=== PATIENT | male | born 1950 | race Caucasian/White ===

== ENCOUNTER 2016-12-16 11:11 | Emergency (ER) | payer MEDICARE, MEDICAID ==
[2016-12-16 11:30] VITALS: TEMP 98.5; BMI 29.4
[2016-12-16 11:49] LABS: AUTOMATED BASOPHIL 0.7 % (0-2); AUTOMATED EOSINOPHIL 1.7 % (0-5); AUTOMATED LYMPH 18.7 % (17-44); AUTOMATED MONOCYTE 12.2 % (3-10); AUTOMATED NEUTROPHIL 66.7 % (45-76); MPV 8.9 fL (7.4-10.4)
[2016-12-16 11:57] LABS: BLOOD UREA NITROGEN 20 MG/DL (9-20); CALC CORRECTED 10.6 MG/DL (8.4-10.2); CALCIUM 10.4 MG/DL (8.4-10.2); CALCULATED OSMOLALITY 271 MOs/Kg (270-290); CHLORIDE 108 mEq/L (98-107); GLUCOSE 86 MG/DL (70-99); SODIUM LEVEL 140 mEq/L (137-146); TOTAL PROTEIN 6.5 G/DL (6.3-8.2)
[2016-12-16 12:00] LABS: LEUKOCYTES/URINE NEG (NEGATIVE); NITRITE/URINE NEG (NEGATIVE); RBC/URINE TNTC (0-2); URINE OCCULT BLOOD 3+ (NEG/TRACE)
[2016-12-16] MEDS ORDERED: ONDANSETRON HCL 4 MG/2 ML VIAL IV ONE (13:28)
[2016-12-16] MEDS ORDERED: NS 1,000 ML IV ONE (13:28)
[2016-12-16] MEDS ORDERED: HYDROmorphone 1 MG INJECTION IV ONE (13:28)
--- NOTE | 2016-12-16 13:30 | EDPRACDOC ---
- General Information Mode Of Arrival: Car - History of Present Illness Onset: YESTERDAY Pain Location: Reports: Diffuse Pain Context: Reports: Spontaneous Pain Severity: Mild Pain Quality: Reports: Aching Pain Radiation: Reports: No Radiation Adult Abdominal History: Reports: Urolithiasis Modifying Factors: improves with: Nothing Oral Intake: Normal Urinary Output: Normal <Guillermo Barber - Last Filed: 12/16/16 13:50> <Keshawn Vizcarra - Last Filed: 12/16/16 15:21> - General Information Chief Complaint: Abdominal Pain Stated Complaint: PRIVATE AREA PAIN Time Seen by Provider: 12/16/16 12:59 Home Medications: Home Medications Atorvastatin Calcium [Lipitor] 80 mg PO HS 12/22/13 Escitalopram Oxalate [Lexapro] 20 mg PO DAILY 12/22/13 Nitroglycerin [Nitrostat] 0.4 mg SL Q5MX3 PRN 12/22/13 Bennett-3 Acid Ethyl Esters [Lovaza] 2 gm PO BID 12/22/13 Omeprazole [Prilosec] 20 mg PO DAILY 12/22/13 Gabapentin [Neurontin] 300 mg PO TID 05/18/16 Lisinopril [Prinivil] 10 mg PO DAILY 05/18/16 Montelukast Sodium [Singulair] 10 mg PO QHS 05/18/16 Amlodipine [Norvasc] 5 mg PO DAILY #30 tab 09/24/16 Apixaban [Eliquis] 5 mg PO BID #60 tablet 09/24/16 Aspirin [Nish Aspirin] 81 mg PO DAILY #30 tablet 09/24/16 Albuterol Sulfate [Proair Hfa] 2 puff INH Q6H PRN 11/09/16 Ferrous Sulfate [Iron] 325 mg PO DAILY 11/09/16 Mometasone/Formoterol [Dulera 200 Mcg/5 Mcg Inhaler] 2 puff INH BID PRN Tamsulosin HCl 0.4 mg PO BID 11/09/16 Fenofibrate [Tricor] 145 mg PO DAILY 12/16/16 Finasteride [Proscar] 5 mg PO DAILY 12/16/16 Fluticasone Propionate [Flonase Nasal [place]] 1 spray KIKA DAILY 12/16/16 Oxycodone HCl/Acetaminophen [Percocet 5-325 mg Tablet] 1 each PO Q4 #20 tablet 12/16/16 Allergies/Adverse Reactions: Allergies Allergy/AdvReac Type Severity Reaction Status Date / Time hydrocodone AdvReac Intermediate See Verified 11/09/16 11:32 Comments - History of Present Illness HPI: RECENT URETERAL STONE; ATTEMPTED CYSTOSCOPY BUT UNABLE. PAIN TO RIGHT TESTICLE ALSO (Guillermo Barber) ED Past Medical History - History Reviewed Yes Nurses notes reviewed and agree except as marked - Patient Medical History Cardiac History: Reports: Hypertension, Heart Attack, Cardiac Catheterization ( With stents x2), Hypercholesterolemia Respiratory History: Reports: Asthma, COPD, Pulmonary Embolism GI/ History: Reports: Kidney Stones Musculoskeletal History: Reports: Arthritis Psychological History: Reports: Depression, Anxiety. Denies: Substance Use Disorder Surgical History: Reports: Cardiac Catheterization (With stents x2), Other ( Back surgery in the lumbar area) - Family Medical History Reports: Hypertension (mom), Cancer (dad and brother), Cardiac Disorders (mom) - Social Medical History Smoking Status: Former smoker Social History: Denies: Substance Use Disorder <Guillermo Barber - Last Filed: 12/16/16 13:50> EDM Review of Systems - Review of Systems ROS Negative Except as Marked: Yes All systems reviewed and were negative except as marked <Guillermo Barber - Last Filed: 12/16/16 13:50> - Physical Exam Constitutional: Alert (Awake), No apparent distress Oriented to: Time, Person, Place - HEENT Head: Normal ( normocephalic) Eye Exam: Normal (PERRL, EOMI, Sclera white) Oropharynx: Normal (Pharynx:Moist without exudate,Gums-no swelling) ENT EAC: Normal TMJ: Normal Nose: No Symptoms Reported (septum midline) Neck: Normal (FROM, trachea at midline) - Respiratory/Cardiovascular Respiratory: Normal - CTA (BBS clear to auscultation without adventitious sounds ) Cardiovascular: Normal (RRR without murmur, gallop or rub) - GI Auscultation: Normal (NABS) Palpation: Normal (Soft,No rebound or guarding, non distended) Tenderness: Non tender Singh's Sign: Negative - Scrotum: Right: Tender - Musculoskeletal Back: Normal (Non-Tender) Extremities: Normal (Normal tone, Pulses 2+ No cyanosis or edema, FROM) - Integumentary Skin: Normal, Warm, Dry Lymphatics: Normal (no adenopathy) - Neurologic Memory Impaired: Normal Motor Function: Normal (Normal tone, Pulses 2+ No cyanosis or edema, FROM) Cranial Nerve: Normal (CN II-X11 intact sensation, strength 5/5) Cerebellar: Normal Mood Description: Normal Perception: Normal <Guillermo Barber - Last Filed: 12/16/16 13:50> - Results 12/16/16 11:36 12/16/16 11:36 <Guillermo Barber - Last Filed: 12/16/16 13:50> - Results 12/16/16 11:36 12/16/16 11:36 <Keshawn Vizcarra - Last Filed: 12/16/16 15:21> - Results WBC 4.5 xk/uL (3.8-10.8) 12/16/16 11:36 RBC 4.47 xM/uL (4.70-6.10) L 12/16/16 11:36 Hgb 14.5 g/dL (14.0-18.0) 12/16/16 11:36 Hct 43.5 % (42-52) 12/16/16 11:36 MCV 97 fL (80-94) H 12/16/16 11:36 MCH 32.4 pg (27-32) H 12/16/16 11:36 MCHC 33.3 g/dl (33-36) 12/16/16 11:36 RDW 15.0 % (11.5-14.5) H 12/16/16 11:36 Plt Count 186 xk/uL (130-400) 12/16/16 11:36 MPV 8.9 fL (7.4-10.4) 12/16/16 11:36 Neut % (Auto) 66.7 % (45-76) 12/16/16 11:36 Lymph % (Auto) 18.7 % (17-44) 12/16/16 11:36 [place] % (Auto) 12.2 % (3-10) H 12/16/16 11:36 Eos % (Auto) 1.7 % (0-5) 12/16/16 11:36 Baso % (Auto) 0.7 % (0-2) 12/16/16 11:36 Absolute Neuts (auto) 2.97 xk/uL (1.7-8.2) 12/16/16 11:36 Absolute Lymphs (auto) 0.81 xk/uL (0.65-4.75) 12/16/16 11:36 Sodium 140 mEq/L (137-146) 12/16/16 11:36 Potassium 4.0 mEq/L (3.5-5.1) 12/16/16 11:36 Chloride 108 mEq/L (98-107) H 12/16/16 11:36 Carbon Dioxide 25 mMOL/L (22-33) 12/16/16 11:36 Anion Gap 11 mEq/L (8-16) 12/16/16 11:36 BUN 20 MG/DL (9-20) 12/16/16 11:36 Creatinine 1.10 MG/DL (0.66-1.25) 12/16/16 11:36 Estimated GFR (MDRD) > 60 mL/min (>=60) 12/16/16 11:36 Glucose 86 MG/DL (70-99) 12/16/16 11:36 Calculated Osmolality 271 MOs/Kg (270-290) 12/16/16 11:36 Calcium 10.4 MG/DL (8.4-10.2) H 12/16/16 11:36 Corrected Calcium 10.6 MG/DL (8.4-10.2) H 12/16/16 11:36 Total Bilirubin 0.8 MG/DL (0.2-1.3) 12/16/16 11:36 AST 30 IU/L (17-59) 12/16/16 11:36 ALT 54 IU/L (21-72) 12/16/16 11:36 Alkaline Phosphatase 55 IU/L (50-160) 12/16/16 11:36 Total Protein 6.5 G/DL (6.3-8.2) 12/16/16 11:36 Albumin 3.8 G/DL (3.5-5.0) 12/16/16 11:36 Urine Color Yellow 12/16/16 11:33 Urine Clarity Clear 12/16/16 11:33 Urine pH 5.0 (5.0-8.0) 12/16/16 11:33 Ur Specific Mcd[place]ough 1.025 (1.003-1.035) 12/16/16 11:33 Urine Protein Neg (NEG/TRACE) 12/16/16 11:33 Urine Glucose (UA) Neg (NEGATIVE) 12/16/16 11:33 Urine Ketones Neg (NEGATIVE) 12/16/16 11:33 Urine Occult Blood 3+ (NEG/TRACE) H 12/16/16 11:33 Urine Nitrite Neg (NEGATIVE) 12/16/16 11:33 Urine Bilirubin Neg (NEGATIVE) 12/16/16 11:33 Urine Urobilinogen <2.0 MG/DL (0-1) 12/16/16 11:33 Ur Leukocyte Esterase Neg (NEGATIVE) 12/16/16 11:33 Urine RBC Tntc (0-2) H 12/16/16 11:33 Urine WBC 2-5 (0-2) H 12/16/16 11:33 Urine Bacteria Few (NEG/FEW) 12/16/16 11:33 Urine Mucus Mod (NEG/OCC) H 12/16/16 11:33 Lab Results 12/16/16 12/16/16 12/16/16 11:36 11:36 11:33 WBC 4.5 RBC 4.47 L Hgb 14.5 Hct 43.5 MCV 97 H MCH 32.4 H MCHC 33.3 RDW 15.0 H Plt Count 186 MPV 8.9 Neut % (Auto) 66.7 Lymph % (Auto) 18.7 [place] % (Auto) 12.2 H Eos % (Auto) 1.7 Baso % (Auto) 0.7 Absolute Neuts (auto) 2.97 Absolute Lymphs (auto) 0.81 Sodium 140 Potassium 4.0 Chloride 108 H Carbon Dioxide 25 Anion Gap 11 BUN 20 Creatinine 1.10 Estimated GFR (MDRD) > 60 Glucose 86 Calculated Osmolality 271 Calcium 10.4 H Corrected Calcium 10.6 H Total Bilirubin 0.8 AST 30 ALT 54 Alkaline Phosphatase 55 Total Protein 6.5 Albumin 3.8 Urine Color Yellow Urine Clarity Clear Urine pH 5.0 Ur Specific Mcdonough 1.025 Urine Protein Neg Urine Glucose (UA) Neg Urine Ketones Neg Urine Occult Blood 3+ H Urine Nitrite Neg Urine Bilirubin Neg Urine Urobilinogen <2.0 Ur Leukocyte Esterase Neg Urine RBC Tntc H Urine WBC 2-5 H Urine Bacteria Few Urine Mucus Mod H (Guillermo Barber) (Keshawn Vizcarra) - Departure Yes I personally saw and evaluated the patient. Disposition: Home Education/Counseling Given To: Patient, Family Member Education/Counseling Given Regarding: Diagnosis, Treatment, Prognosis <SunilGuillermo Vicente - Last Filed: 12/16/16 13:50> Decision Time to Discharge: 15:08 - Physician Consulted Urology Time Called: 15:19 Provider Called: Bernard Mulligan Time Employee Relations Advisor Returned Call: 15:19 <VizcarraKeshawn - Last Filed: 12/16/16 15:21> - Departure Condition: Good Final Diagnosis: Abdominal pain, Kidney stones Instructions: Kidney Stones (ED), Acute Abdominal Pain (ED) Referrals: Yolanda Perrin MD [Primary Care Provider] - One Week Bernard Mulligan MD [Staff Physician] - One Week Prescriptions: New Oxycodone HCl/Acetaminophen [Percocet 5-325 mg Tablet] 1 each PO Q4 #20 tablet No Action Omeprazole [Prilosec] 20 mg PO DAILY Nitroglycerin [Nitrostat] 0.4 mg SL Q5MX3 PRN PRN Reason: Chest Pain Or Discomfort Escitalopram Oxalate [Lexapro] 20 mg PO DAILY Atorvastatin Calcium [Lipitor] 80 mg PO HS Bennett-3 Acid Ethyl Esters [Lovaza] 2 gm PO BID Montelukast Sodium [Singulair] 10 mg PO QHS Lisinopril [Prinivil] 10 mg PO DAILY Gabapentin [Neurontin] 300 mg PO TID Amlodipine [Norvasc] 5 mg PO DAILY #30 tab Apixaban [Eliquis] 5 mg PO BID #60 tablet Aspirin [Nish Aspirin] 81 mg PO DAILY #30 tablet Tamsulosin HCl 0.4 mg PO BID Mometasone/Formoterol [Dulera 200 Mcg/5 Mcg Inhaler] 2 puff INH BID PRN PRN Reason: Shortness Of Breath Ferrous Sulfate [Iron] 325 mg PO DAILY Albuterol Sulfate [Proair Hfa] 2 puff INH Q6H PRN PRN Reason: Shortness Of Breath Fenofibrate [Tricor] 145 mg PO DAILY Fluticasone Propionate [Flonase Nasal [place]] 1 spray KIKA DAILY Finasteride [Proscar] 5 mg PO DAILY
--- NOTE | 2016-12-16 14:28 | DIRPT ---
CLINICAL DATA: Right testicular pain for 1 day. EXAM: SCROTAL ULTRASOUND DOPPLER ULTRASOUND OF THE TESTICLES TECHNIQUE: Complete ultrasound examination of the testicles, epididymis, and other scrotal structures was performed. Color and spectral Doppler ultrasound were also utilized to evaluate blood flow to the testicles. COMPARISON: None. FINDINGS: Right testicle Measurements: 3.8 x 2.9 x 3.4 cm. No mass or microlithiasis visualized. Mild ectasia of the rete testis noted which is a benign finding. Left testicle Measurements: 3.6 x 2.9 x 2.7 cm. No mass or microlithiasis visualized. Mild ectasia of the rete testis noted, which is a benign finding. Right epididymis: Normal in size and appearance. Left epididymis: Normal in size and appearance. Hydrocele: Moderate left and small right complex hydroceles noted. Varicocele: None visualized Pulsed Doppler interrogation of both testes demonstrates normal low resistance arterial and venous waveforms bilaterally. IMPRESSION: No evidence testicular mass or torsion. Moderate left and small right complex hydroceles. Electronically Signed By: Kp Fishman M.D. On: 12/16/2016 14:25
--- NOTE | 2016-12-16 14:57 | DIRPT ---
CLINICAL DATA: Right-sided flank pain for 1 day, initial encounter EXAM: CT ABDOMEN AND PELVIS WITHOUT CONTRAST TECHNIQUE: Multidetector CT imaging of the abdomen and pelvis was performed following the standard protocol without IV contrast. COMPARISON: None. FINDINGS: Lung bases are free of acute infiltrate or sizable effusion. The liver, gallbladder, spleen, adrenal glands and pancreas are within normal limits. Kidneys are well visualized bilaterally. A left renal cyst is noted measuring approximately 1.5 cm. No renal calculi are seen on the left. On the right mild hydronephrosis and hydroureter is noted secondary to a 7 mm stone at the right ureterovesical junction. This is best seen on image number 71 of series 3. The bladder is well distended. The appendix has been surgically removed. Mild diverticular change of the colon is noted without diverticulitis. Mild aortic calcifications are seen. Postsurgical changes are noted in the lumbar spine. IMPRESSION: 7 mm stone at the right ureterovesical junction with obstructive change. Electronically Signed By: Aamir Jaquez M.D. On: 12/16/2016 14:55
[2016-12-16 15:28] VITALS: BP 133/83; PULSE 64
== END 2016-12-16 15:27 | disposition home or self-care (01) ==
LOC: ED 11:11
DX: N20.0 Calculus of kidney (principal)
CPT/HCPCS: 36415; 74176; 76870; 80053; 81001; 85025; 87086; 93975; 96361; 96374; 96375; 99283; J1170; J2405